=== PATIENT | male | born 1985 | race Caucasian/White ===

== ENCOUNTER 2017-02-07 21:57 | Emergency (ER) | payer SELFPAY ==
[2017-02-07 22:02] VITALS: O2SAT 95
--- NOTE | 2017-02-07 22:17 | EDPHY ---
H & P Stated Complaint: sore throat, right ear pain Source: Patient Exam Limitations: No limitations - Medical/Surgical History Hx Asthma: No Hx Chronic Respiratory Disease: No Hx Diabetes: No Hx Cardiac Disease: No Hx Renal Disease: No Hx Cirrhosis: No Hx Alcoholism: No Hx HIV/AIDS: No Hx Splenectomy or Spleen Trauma: No - Social History Smoking Status: Never smoked Time Seen by Provider: 02/07/17 22:05 HPI/ROS: CHIEF COMPLAINT: sore throat, ear pain HISTORY OF PRESENT ILLNESS: 31-year-old male presents emergency department complaining right ear pain and right-sided sore throat that started yesterday morning. Patient reports his symptoms are worsening as time goes on. He reports pain with swallowing. Patient reports subjective fevers and chills. No nausea, vomiting or diarrhea, no dizziness, no shortness of breath or chest pain , no difficulty swallowing. REVIEW OF SYSTEMS: A comprehensive 10 point review of systems is otherwise negative aside from elements mentioned in the history of present illness. (Shira Solano) - Physical Exam Exam: General: Alert, nontoxic. ENT: Right tympanic membrane obscured with cerumen, cerumen removed revealing a TM with erythema, bulging, cloudy, left TM normal. , external ear and surrounding soft tissue including over the mastoid unremarkable. Nasopharynx is not injected, there is no rhinorrhea. Oropharynx with mild erythema. There is no exudate. No tonsillar hypertrophy. No asymmetry. The uvula is midline. No elevation of tongue. There is no hoarseness. No drooling, patient has good control of their oral secretions. No trismus. No stridor. Cardiac: Regular rate and rhythm. Respiratory: Lungs clear to auscultation bilaterally. Neurological: no meningismus. Skin: No rashes. (Shira Solano) Constitutional: Initial Vital Signs Temperature (C) 36.5 C 02/07/17 22:01 Heart Rate 91 02/07/17 22:01 Respiratory Rate 20 02/07/17 22:01 Blood Pressure 154/91 H 02/07/17 22:01 O2 Sat (%) 95 02/07/17 22:01 O2 Delivery Mode Room Air Allergies/Adverse Reactions: No Known Allergies Allergy (Unverified 02/07/17 22:00) Home Medications: Medication Instructions Recorded Amoxicillin 500 mg PO BID 10 Days 02/07/17 Medical Decision Making Procedures: Procedure: Cerumen removal. After a physical exam was performed cerumen needed to be removed from the patient's ear canal. The indication of the procedure was cerumen impaction and inability to complete the ear exam. The procedure was performed with an ear curette. The patient tolerated the procedure well. The procedure was performed by myself. (Shira Solano) Other Provider: PHYSICIAN DOCUMENTATION: The patient was evaluated and managed by the Physician Research Test Engine Operator. My co- signature indicates that I have reviewed this chart and I agree with the findings and plan of care as documented. I am the secondary supervising physician. (Dian Lucia) - Data Points Medications Given: Discontinued Medications Amoxicillin (Amoxicillin) 500 mg PO EDNOW ONE PRN Reason: Protocol Stop: 02/07/17 23:23 Last Admin: 02/07/17 23:30 Dose: 500 mg Amoxicillin (Amoxicillin) 500 mg PO EDNOW ONE PRN Reason: Protocol Stop: 02/07/17 23:23 Last Admin: 02/07/17 23:24 Dose: 500 mg Carbamide Peroxide (Debrox) 5 drop RTEAR EDNOW ONE Stop: 02/07/17 22:30 Last Admin: 02/07/17 22:56 Dose: 5 drops Ibuprofen (Motrin) 600 mg PO EDNOW ONE Stop: 02/07/17 23:16 Last Admin: 02/07/17 23:23 Dose: 600 mg Departure - Departure Disposition: Home, Routine, Self-Care Clinical Impression: Acute otitis media Condition: Good Instructions: Amoxicillin (By mouth), Otitis Media (ED) Additional Instructions: Take 500 mg of amoxicillin twice daily for 10 days. Take 600 mg of ibuprofen every 8 hours with food as needed for pain for 5 days. Return to the emergency department for worsening symptoms, new symptoms or concerns. Referrals: NONE *PRIMARY CARE P,. [Primary Care Provider] - As per Instructions Prescriptions: Amoxicillin 500 mg PO BID 10 Days
[2017-02-07] MEDS ORDERED: CARBAMIDE PEROXIDE 15 ML BOTTLE RTEAR ONE (22:29)
[2017-02-07] MEDS ORDERED: HYDROGEN PEROXIDE 236 ML BOTTLE TP ONE ×3 (23:02→23:08)
[2017-02-07] MEDS ORDERED: IBUPROFEN 600 MG TAB PO ONE (23:15)
[2017-02-07 23:33] VITALS: BP 139/89; PULSE 65; RESP 14; TEMP 98.6
== END 2017-02-07 23:32 | disposition home or self-care (01) ==
PROC: F09Z3ZZ Cerumen Management Treatment (ICD-10-PCS; principal; 2017-02-07)
DX: H66.91 Otitis media, unspecified, right ear (principal)

== ENCOUNTER 2017-02-10 10:08 | Emergency (ER) | payer OTHER ==
[2017-02-10] MEDS ORDERED: BENZOCAINE UNIT DOSE SPRAY HURRICAINE MM ONE (10:41)
--- NOTE | 2017-02-10 10:48 | EDPHY ---
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 No fever no chills. No URI symptoms. REVIEW OF SYSTEMS: A ten point review of systems was performed and is negative with the exception of the items mentioned in the HPI PAST MEDICAL & SURGICAL HISTORY: No pertinent medical or surgical history SOCIAL HISTORY: Nonsmoker PHYSICAL EXAM (Prior to examination, patient consented to physical exam, hands were washed and my usual and customary physical exam procedures followed) 1) GENERAL: Well-developed, well-nourished, alert and oriented. Appears uncomfortable. 2) HEAD: Normocephalic, atraumatic 3) HEENT: Pupils equal, round, reactive to light bilaterally. Sclera anicteric. Oropharynx: Positive trismus, prior to and after application of Hurricaine spray. Right tonsil is notably asymmetrically larger with pointing of the uvula. No hot potato voice. Ears bilaterally with normal tympanic membranes. 4) NECK: Full range of motion, no meningeal signs. positive submandibular adenopathy bilaterally. 5) LUNGS: Clear auscultation bilaterally 6) HEART: Regular rate and rhythm, no murmur, no heave, no gallop. 7) ABDOMEN: No guarding, no rebound, no focal tendernes, 8) MUSCULOSKELETAL: Moving all extremities. 9) BACK: No CVA tenderness 10) SKIN: No rash, no petechiae. 11) Psychiatric: Patient is oriented X 3, there is no agitation. DIFFERENTIAL DIAGNOSIS: in no particular order including but not limited to retropharyngeal abscess, peritonsillar abscess, meningitis, mononucleosis - Medical/Surgical History Hx Asthma: No Hx Chronic Respiratory Disease: No Hx Diabetes: No Hx Cardiac Disease: No Hx Renal Disease: No Hx Cirrhosis: No Hx Alcoholism: No Hx HIV/AIDS: No Hx Splenectomy or Spleen Trauma: No Other PMH: denies - Social History Smoking Status: Never smoked Constitutional: Initial Vital Signs Temperature (C) 36.7 C 02/10/17 10:13 Heart Rate 78 02/10/17 10:13 Respiratory Rate 16 02/10/17 10:13 Blood Pressure 142/92 H 02/10/17 10:13 O2 Sat (%) 97 02/10/17 10:13 O2 Delivery Mode Room Air Allergies/Adverse Reactions: No Known Allergies Allergy (Verified 02/10/17 10:13) Home Medications: Medication Instructions Recorded Amoxicillin 500 mg PO BID 10 Days 02/07/17 Medical Decision Making ED Course/Re-evaluation: Discussed case with Dr. Dill in the emergency department. Given the degree of trismus in the patient I do not feel comfortable performing incision and drainage of a likely peritonsillar abscess. 11:45 a.m.: Phone consultation with Dr. Norman Chavarria, on-call ENT who agree to see patient afternoon. Received phone call from his office and he has a 3:15 appointment . Patient was given dose oral Decadron oral clindamycin in the emergency department - Data Points Medications Given: Discontinued Medications Clindamycin (Clindamycin) 300 mg PO EDNOW ONE PRN Reason: Protocol Stop: 02/10/17 11:53 Last Admin: 02/10/17 12:03 Dose: 300 mg Dexamethasone (Decadron Injection) 10 mg PO EDNOW ONE Stop: 02/10/17 11:48 Last Admin: 02/10/17 12:03 Dose: 10 mg Departure - Departure Disposition: Home, Routine, Self-Care Clinical Impression: Peritonsillar abscess Condition: Good Instructions: Peritonsillar Abscess (ED) Additional Instructions: keep her appointment with Dr. Chavarria this afternoon 3:15 pm. Your were given a dose of Decadron and clindamycin in the emergency department Referrals: Norman Chavarria MD [Medical Doctor] - 02/10/17 3:15 pm ( you have a 3:[address] Chavarria.)
[2017-02-10] MEDS ORDERED: AMOXICILLIN/CLAVULANATE POT 875/125 MG TAB PO ONE (11:47)
[2017-02-10] MEDS ORDERED: DEXAMETHASONE 10 MG/ML VIAL PO ONE (11:47)
[2017-02-10] MEDS ORDERED: CLINDAMYCIN 150 MG CAP PO ONE (11:52)
[2017-02-10] MEDS ORDERED: DEXAMETHASONE 4 MG TAB ONE (11:59)
[2017-02-10 12:24] VITALS: BP 130/70; PULSE 76; RESP 12; TEMP 98.6; O2SAT 96
== END 2017-02-10 12:23 | disposition home or self-care (01) ==
DX: J36 Peritonsillar abscess (principal)